=== PATIENT | male | born 1990 | race Two or more races ===

== ENCOUNTER 2021-03-31 14:19 | Emergency (ER) | payer OTHER ==
[~2021-03-31] VITALS: Ht 175.3 cm; Wt 102.1 kg
[2021-03-31 21:01] VITALS: BP 139/89
== END 2021-04-01 04:38 | disposition home or self-care (01) ==
LOC: ER 14:19
DX: S92.001A Unspecified fracture of right calcaneus, initial encounter for closed fracture (principal); E66.9 Obesity, unspecified; Z68.33 Body mass index [BMI] 33.0-33.9, adult; W50.0XXA Accidental hit or strike by another person, initial encounter; Y93.66 Activity, soccer; Y92.89 Other specified places as the place of occurrence of the external cause; Y99.8 Other external cause status
CPT/HCPCS: 29515; 73590